=== PATIENT | female | born 1985 | race Caucasian/White ===

== ENCOUNTER 2019-05-06 23:41 | Inpatient (IN) | payer SELFPAY ==
[2019-05-07] MEDS ORDERED: LACTATED RINGERS 500 ML IV ONE (00:31)
[2019-05-07] MEDS ORDERED: MAGNESIUM SULFATE 4GM/100ML 4 GM/100 ML BAG IV ONE (00:34)
[2019-05-07] MEDS ORDERED: MAGNESIUM SULFATE 40GM/1000ML 40 GM/1,000 ML BAG IV SCH (01:00)
[2019-05-07] MEDS ORDERED: SENOKOT S PO PRN (01:18)
[2019-05-07] MEDS ORDERED: ZOFRAN IV PRN (01:18)
[2019-05-07] MEDS ORDERED: COLACE PO PRN (01:18)
[2019-05-07] MEDS ORDERED: TYLENOL PO PRN (01:18)
[2019-05-07] MEDS ORDERED: MYLICON PO PRN (01:18)
[2019-05-07] MEDS ORDERED: AMPICILLIN/NS 2 GM/100 ML 2 GM/100 ML BAG IV ONE (01:18)
--- NOTE | 2019-05-07 01:23 | History and Physical Report ---
History of Present Illness Date of examination: 05/07/19 Date of admission: 05/07/19 00:54 Chief complaint: Contractions with vaginal bleeding History of present illness: Pt is a 34yo EDC 06/30/19; EGA 32 2/7 weeks presents to L&D complaining of vaginal bleeding. She received care at [facility] and course has been unremarkable. She denies contractions or ROM. records are not available. Past History Past Medical History: no pertinent history Past Surgical History: no surgical history Social history: no significant social history, - Obstetrical History Expected Date of Delivery: 06/30/19 Actual Gestation: 32 Week(s) 3 Day(s) Medications and Allergies Allergies Allergy/AdvReac Type Severity Reaction Status Date / Time No Known Allergies Allergy Verified 05/07/19 00:40 Active Meds: Active Medications Acetaminophen (Tylenol) 650 mg PO Q4H PRN PRN Reason: Pain MILD(1-3)/Fever >100.5/DUBON Betamethasone Acet/Betameth SodPhos (Celestone Soluspan) 12 mg IM Q24HR TONG Stop: 05/08/19 10:01 Docusate Sodium (Colace) 100 mg PO Q12H PRN PRN Reason: Constipation Magnesium Sulfate (Magnesium Sulfate 40gm/1000ml) 40 gm in 1,000 mls @ 50 mls/hr IV DIRECT TONG Lactated Ringer's (Lactated Ringers) 1,000 mls @ 125 mls/hr IV DIRECT TONG Ampicillin Sodium (Ampicillin/Ns 1 Gm/50 Ml) 1 gm in 50 mls @ 100 mls/hr IV Q4HR TONG; Protocol Ampicillin Sodium (Ampicillin/Ns 2 Gm/100 Ml) 2 gm in 100 mls @ 100 mls/hr IV ONCE ONE; Protocol Stop: 05/07/19 02:17 Multivitamins/Iron/Calcium ( Vitamin) 1 each PO QDAY TONG Ondansetron HCl (Zofran) 4 mg IV Q6H PRN PRN Reason: Nausea And Vomiting Senna/Docusate Sodium (Senokot S) 2 tab PO Q12H PRN PRN Reason: Laxative Effect Simethicone (Mylicon) 80 mg PO Q6H PRN PRN Reason: Gas pain Review of Systems All systems: negative - Vital Signs Vital signs: Vital Signs Pulse BP 78 132/82 06/08/19 23:56 05/06/19 23:56 Temp Pulse Resp BP Pulse Ox 71 118/69 05/07/19 00:57 05/07/19 00:57 - Physical Exam Breasts: Positive: deferred Cardiovascular: Regular rate Lungs: Positive: Clear to auscultation Abdomen: Positive: normal appearance, soft Genitourinary (Female): Positive: normal external genitalia Vagina: Positive: other (blood on perineum) Uterus: Positive: enlarged Extremities: Positive: normal - Obstetrical FHR: category 1 Uterine Contraction Monitor Mode: External Cervical Dilatation: 0 (per nurse) Cervical Effacement Percentage: 50 (per nurse) Uterine Contraction Pattern: Irregular Uterine Contraction Intensity: Mild Results Result Diagrams: 05/07/19 02:20 All other labs normal. Ultrasound: report reviewed ([place]; Vertex; IRIS 13.4; Cervical length 3.2cm; Posterior placenta; BPP 8/8) Assessment and Plan - Patient Problems (1) 32 weeks gestation of Onset Date: 05/07/19 Current Visit: Yes Status: Acute Plan to address problem: A: IUP @ 32 2/7 weeks Third trimester bleeding contractions P: Admit to L&D Obtain Ob u/s RANDI - r/o abruption, previa Begin IV Magnesium sulfate, IV ampicillin, IM steroids Obtain [facility] consultation Obtain records (2) Vaginal bleeding Onset Date: 05/07/19 Current Visit: Yes Status: Acute
--- NOTE | 2019-05-07 01:43 | Ultrasound Report ---
PROCEDURE: US OB BPP WO NON-STRESS TECHNIQUE: Sonographic evaluation for breathing, movement, tone, and amniotic flui d volume was performed. HISTORY: labor COMPARISONS: None . FINDINGS: FETUS Amniotic fluid volume Normal-score 2. At least one vertical pocket >2 cm or more in vertical axis . breathing: Normal-score 2 . movement: Normal-score 2 . tone: Normal-score 2 . Score: 8 of 8 . IMPRESSION: Normal biophysical profile . This document is electronically signed by Marium Bonilla DO., May 07 2019 01:41:36 AM ET
--- NOTE | 2019-05-07 01:45 | Ultrasound Report ---
PROCEDURE: US OB LIMITED TECHNIQUE: Obstetrical ultrasound for evaluation of the placenta and amniotic fluid HISTORY: labor/ R/O abruption COMPARISONS: None available FINDINGS: There is a single fetus in a vertex presentation. heart rate is 164 bpm. The cervical length is 3.2 cm. 4 quadrant amniotic fluid volume is 13.4 cm. Evaluation of the placenta shows the placenta i s along the posterior uterus. No placental abruption is identified. No further measurements are obtai aaron. IMPRESSION: There is a single fetus in a vertex presentation. The placenta is along the posterior uterus with no evidence of abruption. 4 quadrant amniotic fluid volume is 13.4 cm. This document is electronically signed by Marium Bonilla DO., May 07 2019 01:43:35 AM ET
[2019-05-07] MEDS ORDERED: LACTATED RINGERS 1,000 ML IV SCH (02:00)
[2019-05-07 02:34] LABS: Hematocrit 37.7 % (30.3-42.9); Hemoglobin 12.8 gm/dl (10.1-14.3); Mean Corpuscular HGB Conc 34 % (30-34); Mean Corpuscular Volume 91 fl (79-97); Platelet Count 187 K/mm3 (140-440); Red Blood Count 4.17 M/mm3 (3.65-5.03); Red Cell Distribution Width 14.9 % (13.2-15.2)
[2019-05-07] MEDS: CELESTONE SOLUSPAN IM SCH (02:40)
[2019-05-07 05:17] LABS: Band Neutrophils # (Manual) 0.1 K/mm3; Basophils % (Manual) 0 % (0.0-1.8); Total Cells Counted 100
[2019-05-07 05:18] LABS: Platelet Estimate Consistent w Auto; RBC Morphology Normal
[2019-05-07] MEDS ORDERED: STADOL IV ONE (06:55)
[2019-05-07] MEDS: AMPICILLIN/NS 1 GM/50 ML 1 GM/50 ML BAG IV SCH ×2 (08:25→13:19)
[2019-05-07] MEDS: PRENATAL VITAMIN PO SCH (10:06)
[2019-05-07 15:23] LABS: Amphetamine Screen,Urine PRESUMPTIVE NEGATIVE; Benzodiazepines Screen,Urine PRESUMPTIVE NEGATIVE; Cannabinoid Screen,Urine PRESUMPTIVE NEGATIVE; Cocaine Screen,Urine PRESUMPTIVE NEGATIVE; Methadone Screen,Urine PRESUMPTIVE NEGATIVE; Opiate Screen,Urine PRESUMPTIVE NEGATIVE
[2019-05-07 15:34] LABS: INR 1.01 (0.87-1.13)
[2019-05-07 15:35] LABS: Partial Thromboplastin Time 27.9 Sec. (24.2-36.6)
--- NOTE | 2019-05-07 16:06 | Consultation ---
History of Present Illness Consult date: 05/07/19 Requesting physician: GUERO PORTILLO History of present illness: Utilized [employer] # [id number] 34 y/o ASHLEY 06/30/17 - 32 weeks presented with vaginal bleeding Had prior episode of bleeding 2 weeks ago lasted 2 days Returned with heavier bleeding started around 11:30 - ?? "about to have sex" and reported this was heavier - occ ctx but now stopped Nurse report cervix Closed EFM no ctx categ one - baseline 120-130 ' currently on Mg Getting Steroids BPP 07/06 US no evidence of abruption IRIS 13.4 cm Labs Plt 187 PT/PTT NL Fibrinogen 425 OB hist X 3 all at term , , 13 - no comps no C/C/C No STD No med or surg NKA Abd soft NT gravid ext NT no edema Pad no active bleeding old brownish dc Past History Past Medical History: no pertinent history Past Surgical History: no surgical history - Obstetrical History : 4 Medications and Allergies Allergies Allergy/AdvReac Type Severity Reaction Status Date / Time No Known Allergies Allergy Verified 05/07/19 00:40 Active Meds: Active Medications Acetaminophen (Tylenol) 650 mg PO Q4H PRN PRN Reason: Pain MILD(1-3)/Fever >100.5/DUBON Betamethasone Acet/Betameth SodPhos (Celestone Soluspan) 12 mg IM Q24H TONG Stop: 05/08/19 02:01 Last Admin: 05/07/19 02:40 Dose: 12 mg Documented by: Docusate Sodium (Colace) 100 mg PO Q12H PRN PRN Reason: Constipation Magnesium Sulfate (Magnesium Sulfate 40gm/1000ml) 40 gm in 1,000 mls @ 50 mls/hr IV DIRECT TONG Lactated Ringer's (Lactated Ringers) 1,000 mls @ 125 mls/hr IV DIRECT TONG Last Infusion: 06/09/19 12:11 Dose: 75 mls/hr Documented by: Ampicillin Sodium (Ampicillin/Ns 1 Gm/50 Ml) 1 gm in 50 mls @ 100 mls/hr IV Q4HR [facility]; Protocol Last Admin: 05/07/19 13:19 Dose: 100 mls/hr Documented by: Multivitamins/Iron/Calcium ( Vitamin) 1 each PO QDAY TONG Last Admin: 05/07/19 10:06 Dose: 1 each Documented by: Ondansetron HCl (Zofran) 4 mg IV Q6H PRN PRN Reason: Nausea And Vomiting Senna/Docusate Sodium (Senokot S) 2 tab PO Q12H PRN PRN Reason: Laxative Effect Simethicone (Mylicon) 80 mg PO Q6H PRN PRN Reason: Gas pain - Vital Signs Vital signs: Vital Signs Pulse BP 78 132/82 05/06/19 23:56 05/06/19 23:56 Temp Pulse Resp BP Pulse Ox 98.2 F 77 16 108/66 97 05/07/19 13:19 05/07/19 15:18 05/07/19 15:09 05/07/19 15:18 05/07/19 11:11 Results Result Diagrams: 05/07/19 02:20 Abnormal lab results 05/07/19 05/07/19 05/07/19 Range/Units 02:20 05:47 12:48 Monocytes % (Manual) 12.0 H (0.0-7.3) % Lymphocytes # (Manual) 1.1 L (1.2-5.4) K/mm3 Monocytes # (Manual) 0.9 H (0.0-0.8) K/mm3 D-Dimer (0-234) ng/mlDDU Magnesium 3.80 H 4.10 H (1.7-2.3) mg/dL 05/07/19 Range/Units 14:35 Monocytes % (Manual) (0.0-7.3) % Lymphocytes # (Manual) (1.2-5.4) K/mm3 Monocytes # (Manual) (0.0-0.8) K/mm3 D-Dimer 285.66 H (0-234) ng/mlDDU Magnesium (1.7-2.3) mg/dL All other labs normal. Assessment and Plan Impression 1. [place]illed[place] IUP at 32 weeks 2. Vag bleeding - poss abrubtion - US neg - poss post coital 3. PTC's normal CL cx closed Recommendations 1. DC Mg after 24 hours 2. Steroids for FLM 3. IF EFM remains reassuring and no bleeding x 24 Hours would allow dc home with strict instructions - 4. Restricted activity and Pelvic rest 5. Call or return with recurrent bleeding or PTL 6. May follow up with [facility] in one week to confirm normal BPP and placenta
[2019-05-08] MEDS: CELESTONE SOLUSPAN IM SCH (02:58)
[2019-05-08] MEDS: PRENATAL VITAMIN PO SCH (10:21)
--- NOTE | 2019-05-08 13:35 | Progress Note ---
Assessment and Plan - Patient Problems (1) 32 weeks gestation of Onset Date: 05/07/19 Current Visit: Yes Status: Acute Plan to address problem: A: IUP @ 32 2/7 weeks Third trimester bleeding contractions P: Admit to L&D Obtain Ob u/s RANDI - r/o abruption, previa Begin IV Magnesium sulfate, IV ampicillin, IM steroids MFM Recommendations 1. DC Mg after 24 hours 2. Steroids for FLM 3. IF EFM remains reassuring and no bleeding x 24 Hours would allow dc home with strict instructions - 4. Restricted activity and Pelvic rest 5. Call or return with recurrent bleeding or PTL 6. May follow up with [facility] in one week to confirm normal BPP and placenta Subjective - Subjective Date of service: 05/08/19 Interval history: Pt is a 34yo EDC 06/30/19; EGA 32 2/7 weeks presents to L&D complaining of vaginal bleeding. She received care at [facility] and course has been unremarkable. She denies contractions or ROM. She reports regular movements. Patient reports: movement normal, no new complaints, no loss of fluid, no vaginal bleeding, no contractions Objective - Vital Signs Vital Signs: Vital Signs - 12hr 05/08/19 05/08/19 05/08/19 01:32 01:37 01:38 Temperature Pulse Rate 71 68 69 Respiratory Rate Blood Pressure O2 Sat by Pulse 94 95 94 Oximetry 05/08/19 05/08/19 05/08/19 01:42 01:43 01:47 Temperature Pulse Rate 71 69 66 Respiratory Rate Blood Pressure O2 Sat by Pulse 94 94 93 Oximetry 05/08/19 05/08/19 05/08/19 01:48 01:52 01:54 Temperature Pulse Rate 68 67 68 Respiratory Rate Blood Pressure O2 Sat by Pulse 94 96 94 Oximetry 05/08/19 05/08/19 05/08/19 01:57 01:59 02:02 Temperature Pulse Rate 68 68 69 Respiratory Rate Blood Pressure O2 Sat by Pulse 94 94 96 Oximetry 05/08/19 05/08/19 05/08/19 02:07 02:08 02:12 Temperature Pulse Rate 72 69 68 Respiratory Rate Blood Pressure O2 Sat by Pulse 95 94 95 Oximetry 05/08/19 05/08/19 05/08/19 02:17 02:18 02:22 Temperature Pulse Rate 68 65 71 Respiratory Rate Blood Pressure 96/54 O2 Sat by Pulse 96 96 Oximetry 05/08/19 05/08/19 05/08/19 02:27 02:32 02:37 Temperature Pulse Rate 68 73 68 Respiratory Rate Blood Pressure O2 Sat by Pulse 95 95 95 Oximetry 05/08/19 05/08/19 05/08/19 02:42 02:47 02:52 Temperature Pulse Rate 68 68 70 Respiratory Rate Blood Pressure O2 Sat by Pulse 97 95 97 Oximetry 05/08/19 05/08/19 05/08/19 02:55 02:57 03:02 Temperature Pulse Rate 70 69 72 Respiratory Rate Blood Pressure O2 Sat by Pulse 94 97 96 Oximetry 05/08/19 05/08/19 05/08/19 03:04 03:07 03:12 Temperature Pulse Rate 76 71 68 Respiratory Rate Blood Pressure O2 Sat by Pulse 94 97 96 Oximetry 05/08/19 05/08/19 05/08/19 03:17 03:19 03:22 Temperature Pulse Rate 65 66 67 Respiratory Rate Blood Pressure 91/50 O2 Sat by Pulse 95 96 Oximetry 05/08/19 05/08/19 05/08/19 03:27 03:32 03:37 Temperature Pulse Rate 68 69 66 Respiratory Rate Blood Pressure O2 Sat by Pulse 97 96 95 Oximetry 05/08/19 05/08/19 05/08/19 03:41 03:42 03:47 Temperature Pulse Rate 68 68 66 Respiratory Rate Blood Pressure O2 Sat by Pulse 94 95 95 Oximetry 05/08/19 05/08/19 05/08/19 03:52 03:57 04:02 Temperature Pulse Rate 70 73 73 Respiratory Rate Blood Pressure O2 Sat by Pulse 97 97 96 Oximetry 05/08/19 05/08/19 05/08/19 04:07 04:12 04:17 Temperature Pulse Rate 71 71 72 Respiratory Rate Blood Pressure O2 Sat by Pulse 96 96 97 Oximetry 05/08/19 05/08/19 05/08/19 04:19 04:22 04:25 Temperature Pulse Rate 73 71 68 Respiratory Rate Blood Pressure 90/51 89/54 O2 Sat by Pulse 95 Oximetry 05/08/19 05/08/19 05/08/19 04:27 04:28 04:32 Temperature Pulse Rate 73 71 72 Respiratory Rate Blood Pressure 87/50 O2 Sat by Pulse 97 96 Oximetry 05/08/19 05/08/19 05/08/19 04:37 04:40 04:42 Temperature Pulse Rate 73 82 71 Respiratory Rate Blood Pressure O2 Sat by Pulse 96 93 95 Oximetry 05/08/19 05/08/19 05/08/19 04:47 04:52 04:57 Temperature Pulse Rate 80 76 71 Respiratory Rate Blood Pressure O2 Sat by Pulse 97 96 95 Oximetry 05/08/19 05/08/19 05/08/19 05:02 05:07 05:10 Temperature Pulse Rate 72 72 79 Respiratory Rate Blood Pressure O2 Sat by Pulse 96 96 94 Oximetry 05/08/19 05/08/19 05/08/19 05:12 05:16 05:18 Temperature Pulse Rate 72 72 77 Respiratory Rate Blood Pressure O2 Sat by Pulse 95 94 94 Oximetry 05/08/19 05/08/19 05/08/19 05:20 05:21 05:23 Temperature Pulse Rate 72 70 78 Respiratory Rate Blood Pressure 100/52 O2 Sat by Pulse 94 95 Oximetry 05/08/19 05/08/19 05/08/19 05:28 05:33 05:38 Temperature Pulse Rate 71 69 68 Respiratory Rate Blood Pressure O2 Sat by Pulse 95 95 94 Oximetry 05/08/19 05/08/19 05/08/19 05:43 05:45 05:48 Temperature Pulse Rate 72 69 73 Respiratory Rate Blood Pressure O2 Sat by Pulse 94 94 96 Oximetry 05/08/19 05/08/19 05/08/19 05:53 05:58 06:00 Temperature Pulse Rate 69 76 77 Respiratory Rate Blood Pressure O2 Sat by Pulse 95 95 94 Oximetry 05/08/19 05/08/19 05/08/19 06:03 06:08 06:13 Temperature Pulse Rate 71 68 75 Respiratory Rate Blood Pressure O2 Sat by Pulse 96 95 95 Oximetry 05/08/19 05/08/19 05/08/19 06:18 06:23 06:28 Temperature Pulse Rate 68 72 70 Respiratory Rate Blood Pressure 99/58 O2 Sat by Pulse 92 94 96 Oximetry 05/08/19 05/08/19 05/08/19 06:33 06:37 06:38 Temperature Pulse Rate 68 74 78 Respiratory Rate Blood Pressure O2 Sat by Pulse 96 93 95 Oximetry 05/08/19 05/08/19 05/08/19 06:43 06:48 06:52 Temperature Pulse Rate 67 75 73 Respiratory Rate Blood Pressure O2 Sat by Pulse 95 95 94 Oximetry 05/08/19 05/08/19 05/08/19 06:53 06:57 06:58 Temperature Pulse Rate 68 72 72 Respiratory Rate Blood Pressure O2 Sat by Pulse 96 94 96 Oximetry 05/08/19 05/08/19 05/08/19 07:03 07:08 07:13 Temperature Pulse Rate 70 75 69 Respiratory Rate Blood Pressure O2 Sat by Pulse 95 94 95 Oximetry 05/08/19 05/08/19 05/08/19 07:15 07:18 07:20 Temperature 96.7 F L Pulse Rate 70 75 75 Respiratory 16 Rate Blood Pressure 100/57 O2 Sat by Pulse 94 92 94 Oximetry 05/08/19 05/08/19 05/08/19 07:23 07:28 07:33 Temperature Pulse Rate 73 70 69 Respiratory Rate Blood Pressure O2 Sat by Pulse 98 96 96 Oximetry 05/08/19 05/08/19 05/08/19 07:34 07:38 07:39 Temperature Pulse Rate 72 73 72 Respiratory Rate Blood Pressure O2 Sat by Pulse 94 95 94 Oximetry 05/08/19 05/08/19 05/08/19 07:43 07:45 07:48 Temperature Pulse Rate 71 68 70 Respiratory Rate Blood Pressure O2 Sat by Pulse 93 94 96 Oximetry 05/08/19 05/08/19 05/08/19 07:50 07:53 07:55 Temperature Pulse Rate 72 72 72 Respiratory Rate Blood Pressure O2 Sat by Pulse 94 95 93 Oximetry 05/08/19 05/08/19 05/08/19 07:58 08:03 08:07 Temperature Pulse Rate 70 69 79 Respiratory Rate Blood Pressure O2 Sat by Pulse 96 96 94 Oximetry 05/08/19 05/08/19 05/08/19 08:08 08:13 08:18 Temperature Pulse Rate 81 71 70 Respiratory Rate Blood Pressure O2 Sat by Pulse 97 96 96 Oximetry 05/08/19 05/08/19 05/08/19 08:19 08:22 08:23 Temperature Pulse Rate 65 71 70 Respiratory Rate Blood Pressure 95/53 O2 Sat by Pulse 94 97 Oximetry 05/08/19 05/08/19 05/08/19 08:28 08:30 08:33 Temperature Pulse Rate 68 68 73 Respiratory Rate Blood Pressure O2 Sat by Pulse 95 94 93 Oximetry 05/08/19 05/08/19 05/08/19 08:35 08:38 08:41 Temperature Pulse Rate 74 70 70 Respiratory Rate Blood Pressure O2 Sat by Pulse 93 96 94 Oximetry 05/08/19 05/08/19 05/08/19 08:43 08:48 08:53 Temperature Pulse Rate 67 83 68 Respiratory Rate Blood Pressure O2 Sat by Pulse 94 96 95 Oximetry 05/08/19 05/08/19 05/08/19 08:57 08:58 09:03 Temperature Pulse Rate 73 72 71 Respiratory Rate Blood Pressure O2 Sat by Pulse 94 95 95 Oximetry 05/08/19 05/08/19 05/08/19 09:04 09:08 09:11 Temperature Pulse Rate 70 77 82 Respiratory Rate Blood Pressure O2 Sat by Pulse 94 96 93 Oximetry 05/08/19 05/08/19 05/08/19 09:13 09:17 09:18 Temperature Pulse Rate 78 69 68 Respiratory Rate Blood Pressure O2 Sat by Pulse 95 94 93 Oximetry 05/08/19 05/08/19 05/08/19 09:20 09:23 09:28 Temperature Pulse Rate 68 69 67 Respiratory Rate Blood Pressure 96/54 O2 Sat by Pulse 95 94 Oximetry 05/08/19 05/08/19 05/08/19 09:30 09:33 09:36 Temperature Pulse Rate 69 70 83 Respiratory Rate Blood Pressure O2 Sat by Pulse 93 95 94 Oximetry 05/08/19 05/08/19 05/08/19 09:38 09:41 09:43 Temperature Pulse Rate 65 66 82 Respiratory Rate Blood Pressure O2 Sat by Pulse 94 94 91 Oximetry 05/08/19 05/08/19 05/08/19 09:46 09:48 10:17 Temperature Pulse Rate 85 81 85 Respiratory Rate Blood Pressure O2 Sat by Pulse 94 95 97 Oximetry 05/08/19 05/08/19 05/08/19 10:19 10:21 10:22 Temperature Pulse Rate 76 83 90 Respiratory Rate Blood Pressure 111/55 O2 Sat by Pulse 94 96 Oximetry 05/08/19 05/08/19 05/08/19 10:27 10:33 10:38 Temperature Pulse Rate 87 85 82 Respiratory Rate Blood Pressure O2 Sat by Pulse 96 97 98 Oximetry 05/08/19 05/08/19 05/08/19 10:43 10:48 10:53 Temperature Pulse Rate 79 77 72 Respiratory Rate Blood Pressure O2 Sat by Pulse 97 96 96 Oximetry 05/08/19 05/08/19 05/08/19 10:58 11:03 11:08 Temperature Pulse Rate 74 76 78 Respiratory Rate Blood Pressure O2 Sat by Pulse 95 95 95 Oximetry 05/08/19 05/08/19 05/08/19 11:09 11:13 11:18 Temperature Pulse Rate 85 85 84 Respiratory Rate Blood Pressure 118/69 O2 Sat by Pulse 94 97 95 Oximetry 05/08/19 05/08/19 05/08/19 11:19 11:23 11:28 Temperature Pulse Rate 85 92 H 83 Respiratory Rate Blood Pressure O2 Sat by Pulse 94 97 98 Oximetry 05/08/19 05/08/19 05/08/19 11:33 11:38 11:43 Temperature Pulse Rate 85 85 84 Respiratory Rate Blood Pressure O2 Sat by Pulse 96 97 95 Oximetry 05/08/19 05/08/19 05/08/19 11:47 11:48 11:53 Temperature Pulse Rate 83 86 90 Respiratory Rate Blood Pressure O2 Sat by Pulse 94 95 96 Oximetry 05/08/19 05/08/19 05/08/19 11:54 11:58 12:00 Temperature Pulse Rate 84 80 56 L Respiratory Rate Blood Pressure O2 Sat by Pulse 91 95 84 Oximetry 05/08/19 05/08/19 05/08/19 12:03 12:05 12:08 Temperature Pulse Rate 79 80 84 Respiratory Rate Blood Pressure O2 Sat by Pulse 96 94 96 Oximetry 05/08/19 05/08/19 05/08/19 12:12 12:13 12:18 Temperature Pulse Rate 80 87 76 Respiratory Rate Blood Pressure O2 Sat by Pulse 94 95 96 Oximetry 05/08/19 05/08/19 05/08/19 12:19 12:23 12:28 Temperature Pulse Rate 83 76 84 Respiratory Rate Blood Pressure 113/82 O2 Sat by Pulse 92 95 97 Oximetry 05/08/19 13:18 Temperature Pulse Rate 73 Respiratory Rate Blood Pressure 108/57 O2 Sat by Pulse Oximetry - Exam Breasts: deferred Abdomen: Present: soft Uterus: Absent: tenderness FHR: category 1 - Labs Labs: Abnormal Labs 05/07/19 05/07/19 05/07/19 02:20 05:47 12:48 Monocytes % (Manual) 12.0 H Lymphocytes # (Manual) 1.1 L Monocytes # (Manual) 0.9 H D-Dimer Magnesium 3.80 H 4.10 H 05/07/19 05/07/19 14:35 19:40 Monocytes % (Manual) Lymphocytes # (Manual) Monocytes # (Manual) D-Dimer 285.66 H Magnesium 4.60 H Laboratory Results - last 24 hr 05/07/19 05/07/19 05/07/19 12:48 14:35 14:35 PT 13.9 INR 1.01 APTT 27.9 Fibrinogen 425 D-Dimer 285.66 H Magnesium 4.10 H Urine Opiates Screen Presumptive negative Urine Methadone Screen Presumptive negative Ur Barbiturates Screen Presumptive negative Ur Phencyclidine Scrn Presumptive negative Ur Amphetamines Screen Presumptive negative U Benzodiazepines Scrn Presumptive negative Urine Cocaine Screen Presumptive negative U Marijuana (THC) Screen Presumptive negative Drugs of Abuse Note Disclamer 05/07/19 19:40 PT INR APTT Fibrinogen D-Dimer Magnesium 4.60 H Urine Opiates Screen Urine Methadone Screen Ur Barbiturates Screen Ur Phencyclidine Scrn Ur Amphetamines Screen U Benzodiazepines Scrn Urine Cocaine Screen U Marijuana (THC) Screen Drugs of Abuse Note
--- NOTE | 2019-05-08 13:44 | Progress Note ---
Assessment and Plan Assessment and Plan Impression 1. [place] IUP at 32 weeks 2. Vag bleeding - US neg for abruption - poss post coital; denies vaginal bleeding today 3. PTC's normal CL cx closed; denies contractions today 4. Mg in progress 5. S/P steroid for lung maturity 6. Cervix closed per FRED Hernandez. Recommendations 1. IF EFM remains reassuring and no bleeding x 24 Hours would allow dc home with strict instructions - 2.. Modified activity/ Pelvic rest 3. Call or return with recurrent bleeding or PTL 4. May follow up with [facility] in one week to confirm normal BPP and placenta Thank you for giving us the opportunity to participate in the care of this patient. Please contact our stoneworking belt sander physician Dr. James with any further questions or concerns. Subjective - Subjective Date of service: 05/08/19 Interval history: Patient denies contractions, vaginal bleeding, LOF. Patient reports: movement normal, no new complaints, no loss of fluid, no vaginal bleeding, no contractions Objective - Vital Signs Vital Signs: Vital Signs - 12hr 05/08/19 05/08/19 05/08/19 01:42 01:43 01:47 Temperature Pulse Rate 71 69 66 Respiratory Rate Blood Pressure O2 Sat by Pulse 94 94 93 Oximetry 05/08/19 05/08/19 05/08/19 01:48 01:52 01:54 Temperature Pulse Rate 68 67 68 Respiratory Rate Blood Pressure O2 Sat by Pulse 94 96 94 Oximetry 05/08/19 05/08/19 05/08/19 01:57 01:59 02:02 Temperature Pulse Rate 68 68 69 Respiratory Rate Blood Pressure O2 Sat by Pulse 94 94 96 Oximetry 05/08/19 05/08/19 05/08/19 02:07 02:08 02:12 Temperature Pulse Rate 72 69 68 Respiratory Rate Blood Pressure O2 Sat by Pulse 95 94 95 Oximetry 05/08/19 05/08/19 05/08/19 02:17 02:18 02:22 Temperature Pulse Rate 68 65 71 Respiratory Rate Blood Pressure 96/54 O2 Sat by Pulse 96 96 Oximetry 05/08/19 05/08/19 05/08/19 02:27 02:32 02:37 Temperature Pulse Rate 68 73 68 Respiratory Rate Blood Pressure O2 Sat by Pulse 95 95 95 Oximetry 05/08/19 05/08/19 05/08/19 02:42 02:47 02:52 Temperature Pulse Rate 68 68 70 Respiratory Rate Blood Pressure O2 Sat by Pulse 97 95 97 Oximetry 05/08/19 05/08/19 05/08/19 02:55 02:57 03:02 Temperature Pulse Rate 70 69 72 Respiratory Rate Blood Pressure O2 Sat by Pulse 94 97 96 Oximetry 05/08/19 05/08/19 05/08/19 03:04 03:07 03:12 Temperature Pulse Rate 76 71 68 Respiratory Rate Blood Pressure O2 Sat by Pulse 94 97 96 Oximetry 05/08/19 05/08/19 05/08/19 03:17 03:19 03:22 Temperature Pulse Rate 65 66 67 Respiratory Rate Blood Pressure 91/50 O2 Sat by Pulse 95 96 Oximetry 05/08/19 05/08/19 05/08/19 03:27 03:32 03:37 Temperature Pulse Rate 68 69 66 Respiratory Rate Blood Pressure O2 Sat by Pulse 97 96 95 Oximetry 05/08/19 05/08/19 05/08/19 03:41 03:42 03:47 Temperature Pulse Rate 68 68 66 Respiratory Rate Blood Pressure O2 Sat by Pulse 94 95 95 Oximetry 05/08/19 05/08/19 05/08/19 03:52 03:57 04:02 Temperature Pulse Rate 70 73 73 Respiratory Rate Blood Pressure O2 Sat by Pulse 97 97 96 Oximetry 05/08/19 05/08/19 05/08/19 04:07 04:12 04:17 Temperature Pulse Rate 71 71 72 Respiratory Rate Blood Pressure O2 Sat by Pulse 96 96 97 Oximetry 05/08/19 05/08/19 05/08/19 04:19 04:22 04:25 Temperature Pulse Rate 73 71 68 Respiratory Rate Blood Pressure 90/51 89/54 O2 Sat by Pulse 95 Oximetry 05/08/19 05/08/19 05/08/19 04:27 04:28 04:32 Temperature Pulse Rate 73 71 72 Respiratory Rate Blood Pressure 87/50 O2 Sat by Pulse 97 96 Oximetry 05/08/19 05/08/19 05/08/19 04:37 04:40 04:42 Temperature Pulse Rate 73 82 71 Respiratory Rate Blood Pressure O2 Sat by Pulse 96 93 95 Oximetry 05/08/19 05/08/19 05/08/19 04:47 04:52 04:57 Temperature Pulse Rate 80 76 71 Respiratory Rate Blood Pressure O2 Sat by Pulse 97 96 95 Oximetry 05/08/19 05/08/19 05/08/19 05:02 05:07 05:10 Temperature Pulse Rate 72 72 79 Respiratory Rate Blood Pressure O2 Sat by Pulse 96 96 94 Oximetry 05/08/19 05/08/19 05/08/19 05:12 05:16 05:18 Temperature Pulse Rate 72 72 77 Respiratory Rate Blood Pressure O2 Sat by Pulse 95 94 94 Oximetry 05/08/19 05/08/19 05/08/19 05:20 05:21 05:23 Temperature Pulse Rate 72 70 78 Respiratory Rate Blood Pressure 100/52 O2 Sat by Pulse 94 95 Oximetry 05/08/19 05/08/19 05/08/19 05:28 05:33 05:38 Temperature Pulse Rate 71 69 68 Respiratory Rate Blood Pressure O2 Sat by Pulse 95 95 94 Oximetry 05/08/19 05/08/19 05/08/19 05:43 05:45 05:48 Temperature Pulse Rate 72 69 73 Respiratory Rate Blood Pressure O2 Sat by Pulse 94 94 96 Oximetry 05/08/19 05/08/19 05/08/19 05:53 05:58 06:00 Temperature Pulse Rate 69 76 77 Respiratory Rate Blood Pressure O2 Sat by Pulse 95 95 94 Oximetry 05/08/19 05/08/19 05/08/19 06:03 06:08 06:13 Temperature Pulse Rate 71 68 75 Respiratory Rate Blood Pressure O2 Sat by Pulse 96 95 95 Oximetry 05/08/19 05/08/19 05/08/19 06:18 06:23 06:28 Temperature Pulse Rate 68 72 70 Respiratory Rate Blood Pressure 99/58 O2 Sat by Pulse 92 94 96 Oximetry 05/08/19 05/08/19 05/08/19 06:33 06:37 06:38 Temperature Pulse Rate 68 74 78 Respiratory Rate Blood Pressure O2 Sat by Pulse 96 93 95 Oximetry 05/08/19 05/08/19 05/08/19 06:43 06:48 06:52 Temperature Pulse Rate 67 75 73 Respiratory Rate Blood Pressure O2 Sat by Pulse 95 95 94 Oximetry 05/08/19 05/08/19 05/08/19 06:53 06:57 06:58 Temperature Pulse Rate 68 72 72 Respiratory Rate Blood Pressure O2 Sat by Pulse 96 94 96 Oximetry 05/08/19 05/08/19 05/08/19 07:03 07:08 07:13 Temperature Pulse Rate 70 75 69 Respiratory Rate Blood Pressure O2 Sat by Pulse 95 94 95 Oximetry 05/08/19 05/08/19 05/08/19 07:15 07:18 07:20 Temperature 96.7 F L Pulse Rate 70 75 75 Respiratory 16 Rate Blood Pressure 100/57 O2 Sat by Pulse 94 92 94 Oximetry 05/08/19 05/08/19 05/08/19 07:23 07:28 07:33 Temperature Pulse Rate 73 70 69 Respiratory Rate Blood Pressure O2 Sat by Pulse 98 96 96 Oximetry 05/08/19 05/08/19 05/08/19 07:34 07:38 07:39 Temperature Pulse Rate 72 73 72 Respiratory Rate Blood Pressure O2 Sat by Pulse 94 95 94 Oximetry 05/08/19 05/08/19 05/08/19 07:43 07:45 07:48 Temperature Pulse Rate 71 68 70 Respiratory Rate Blood Pressure O2 Sat by Pulse 93 94 96 Oximetry 05/08/19 05/08/19 05/08/19 07:50 07:53 07:55 Temperature Pulse Rate 72 72 72 Respiratory Rate Blood Pressure O2 Sat by Pulse 94 95 93 Oximetry 05/08/19 05/08/19 05/08/19 07:58 08:03 08:07 Temperature Pulse Rate 70 69 79 Respiratory Rate Blood Pressure O2 Sat by Pulse 96 96 94 Oximetry 05/08/19 05/08/19 05/08/19 08:08 08:13 08:18 Temperature Pulse Rate 81 71 70 Respiratory Rate Blood Pressure O2 Sat by Pulse 97 96 96 Oximetry 05/08/19 05/08/19 05/08/19 08:19 08:22 08:23 Temperature Pulse Rate 65 71 70 Respiratory Rate Blood Pressure 95/53 O2 Sat by Pulse 94 97 Oximetry 05/08/19 05/08/19 05/08/19 08:28 08:30 08:33 Temperature Pulse Rate 68 68 73 Respiratory Rate Blood Pressure O2 Sat by Pulse 95 94 93 Oximetry 05/08/19 05/08/19 05/08/19 08:35 08:38 08:41 Temperature Pulse Rate 74 70 70 Respiratory Rate Blood Pressure O2 Sat by Pulse 93 96 94 Oximetry 05/08/19 05/08/19 05/08/19 08:43 08:48 08:53 Temperature Pulse Rate 67 83 68 Respiratory Rate Blood Pressure O2 Sat by Pulse 94 96 95 Oximetry 05/08/19 05/08/19 05/08/19 08:57 08:58 09:03 Temperature Pulse Rate 73 72 71 Respiratory Rate Blood Pressure O2 Sat by Pulse 94 95 95 Oximetry 05/08/19 05/08/19 05/08/19 09:04 09:08 09:11 Temperature Pulse Rate 70 77 82 Respiratory Rate Blood Pressure O2 Sat by Pulse 94 96 93 Oximetry 05/08/19 05/08/19 05/08/19 09:13 09:17 09:18 Temperature Pulse Rate 78 69 68 Respiratory Rate Blood Pressure O2 Sat by Pulse 95 94 93 Oximetry 05/08/19 05/08/19 05/08/19 09:20 09:23 09:28 Temperature Pulse Rate 68 69 67 Respiratory Rate Blood Pressure 96/54 O2 Sat by Pulse 95 94 Oximetry 05/08/19 05/08/19 05/08/19 09:30 09:33 09:36 Temperature Pulse Rate 69 70 83 Respiratory Rate Blood Pressure O2 Sat by Pulse 93 95 94 Oximetry 05/08/19 05/08/19 05/08/19 09:38 09:41 09:43 Temperature Pulse Rate 65 66 82 Respiratory Rate Blood Pressure O2 Sat by Pulse 94 94 91 Oximetry 05/08/19 05/08/19 05/08/19 09:46 09:48 10:17 Temperature Pulse Rate 85 81 85 Respiratory Rate Blood Pressure O2 Sat by Pulse 94 95 97 Oximetry 05/08/19 05/08/19 05/08/19 10:19 10:21 10:22 Temperature Pulse Rate 76 83 90 Respiratory Rate Blood Pressure 111/55 O2 Sat by Pulse 94 96 Oximetry 05/08/19 05/08/19 05/08/19 10:27 10:33 10:38 Temperature Pulse Rate 87 85 82 Respiratory Rate Blood Pressure O2 Sat by Pulse 96 97 98 Oximetry 05/08/19 05/08/19 05/08/19 10:43 10:48 10:53 Temperature Pulse Rate 79 77 72 Respiratory Rate Blood Pressure O2 Sat by Pulse 97 96 96 Oximetry 05/08/19 05/08/19 05/08/19 10:58 11:03 11:08 Temperature Pulse Rate 74 76 78 Respiratory Rate Blood Pressure O2 Sat by Pulse 95 95 95 Oximetry 05/08/19 05/08/19 05/08/19 11:09 11:13 11:18 Temperature Pulse Rate 85 85 84 Respiratory Rate Blood Pressure 118/69 O2 Sat by Pulse 94 97 95 Oximetry 05/08/19 05/08/19 05/08/19 11:19 11:23 11:28 Temperature Pulse Rate 85 92 H 83 Respiratory Rate Blood Pressure O2 Sat by Pulse 94 97 98 Oximetry 05/08/19 05/08/19 05/08/19 11:33 11:38 11:43 Temperature Pulse Rate 85 85 84 Respiratory Rate Blood Pressure O2 Sat by Pulse 96 97 95 Oximetry 05/08/19 05/08/19 05/08/19 11:47 11:48 11:53 Temperature Pulse Rate 83 86 90 Respiratory Rate Blood Pressure O2 Sat by Pulse 94 95 96 Oximetry 05/08/19 05/08/19 05/08/19 11:54 11:58 12:00 Temperature Pulse Rate 84 80 56 L Respiratory Rate Blood Pressure O2 Sat by Pulse 91 95 84 Oximetry 05/08/19 05/08/19 05/08/19 12:03 12:05 12:08 Temperature Pulse Rate 79 80 84 Respiratory Rate Blood Pressure O2 Sat by Pulse 96 94 96 Oximetry 05/08/19 05/08/19 05/08/19 12:12 12:13 12:18 Temperature Pulse Rate 80 87 76 Respiratory Rate Blood Pressure O2 Sat by Pulse 94 95 96 Oximetry 05/08/19 05/08/19 05/08/19 12:19 12:23 12:28 Temperature Pulse Rate 83 76 84 Respiratory Rate Blood Pressure 113/82 O2 Sat by Pulse 92 95 97 Oximetry 05/08/19 13:18 Temperature Pulse Rate 73 Respiratory Rate Blood Pressure 108/57 O2 Sat by Pulse Oximetry - Exam Breasts: deferred Cardiovascular: Regular rate Lungs: Normal air movement Abdomen: Present: normal appearance (gravid) - Labs Labs: Abnormal Labs 05/07/19 05/07/19 05/07/19 02:20 05:47 12:48 Monocytes % (Manual) 12.0 H Lymphocytes # (Manual) 1.1 L Monocytes # (Manual) 0.9 H D-Dimer Magnesium 3.80 H 4.10 H 05/07/19 05/07/19 14:35 19:40 Monocytes % (Manual) Lymphocytes # (Manual) Monocytes # (Manual) D-Dimer 285.66 H Magnesium 4.60 H Laboratory Results - last 24 hr 05/07/19 05/07/19 05/07/19 14:35 14:35 19:40 PT 13.9 INR 1.01 APTT 27.9 Fibrinogen 425 D-Dimer 285.66 H Magnesium 4.60 H Urine Opiates Screen Presumptive negative Urine Methadone Screen Presumptive negative Ur Barbiturates Screen Presumptive negative Ur Phencyclidine Scrn Presumptive negative Ur Amphetamines Screen Presumptive negative U Benzodiazepines Scrn Presumptive negative Urine Cocaine Screen Presumptive negative U Marijuana (THC) Screen Presumptive negative Drugs of Abuse Note Disclamer
[2019-05-09 01:48] VITALS: BP 97/52
--- NOTE | 2019-05-09 08:10 | Progress Note ---
Assessment and Plan - Patient Problems (1) 32 weeks gestation of Onset Date: 05/07/19 Current Visit: Yes Status: Acute Plan to address problem: A: IUP @ 32 2/7 weeks Third trimester bleeding contractions P: Admit to L&D Obtain Ob u/s RANDI - r/o abruption, previa Begin IV Magnesium sulfate, IV ampicillin, IM steroids MFM Recommendations 1. DC Mg after 24 hours 2. Steroids for FLM 3. IF EFM remains reassuring and no bleeding x 24 Hours would allow dc home with strict instructions - 4. Restricted activity and Pelvic rest 5. Call or return with recurrent bleeding or PTL 6. May follow up with [facility] in one week to confirm normal BPP and placenta Today 05/09/2019: Patient has met [facility]'s criteria for discharge and may go home. Patient told to continue strict pelvic rest. Subjective - Subjective Date of service: 05/09/19 Interval history: Pt is a 34yo EDC 06/30/19; EGA 32 2/7 weeks presents to L&D complaining of vaginal bleeding. She received care at [facility] and course has been unremarkable. She denies contractions or ROM. She reports regular movements. Patient reports: movement normal, no new complaints, no loss of fluid, no vaginal bleeding, no contractions Objective - Vital Signs Vital Signs: Vital Signs - 12hr 05/08/19 05/08/19 05/09/19 22:34 22:38 01:47 Temperature 98.7 F Pulse Rate 71 69 Respiratory 18 Rate Blood Pressure 110/71 97/52 05/09/19 01:48 Temperature 97.8 F Pulse Rate Respiratory 16 Rate Blood Pressure - Exam Breasts: deferred Abdomen: Present: normal appearance, soft FHR: category 1 (No bleeding reported for past 24 hrs. Patient agreed to refrain from sexual intercourse and continue rest at home. She lives only 2 minutes away from the hospital and will return if any bleeding or contractions or decreased activity.) - Labs Labs: Abnormal Labs 05/07/19 05/07/19 05/07/19 02:20 05:47 12:48 Monocytes % (Manual) 12.0 H Lymphocytes # (Manual) 1.1 L Monocytes # (Manual) 0.9 H D-Dimer Magnesium 3.80 H 4.10 H 05/07/19 05/07/19 14:35 19:40 Monocytes % (Manual) Lymphocytes # (Manual) Monocytes # (Manual) D-Dimer 285.66 H Magnesium 4.60 H
== END 2019-05-09 09:35 | disposition home or self-care (01) | DRG 833 ==
LOC: TRG 23:41 → LD 05-07 00:54
PROVIDERS: ADMIT Obstetrics & Gynecology; ATTEND Obstetrics & Gynecology
DX: O46.93 Antepartum hemorrhage, unspecified, third trimester (principal); Z3A.32 32 weeks gestation of pregnancy
CPT/HCPCS: 36415; 76815; 76819; 80307; 83735; 85007; 85025; 85379; 85384; 85610; 85730; 86850; 86900; 86901; G0378; J0290; J0702; J3475; J7120

== ENCOUNTER 2019-05-17 04:15 | Outpatient (CLI) | payer SELFPAY ==
--- NOTE | 2019-05-17 06:52 | Ultrasound Report ---
PROCEDURE: US OB LIMITED TECHNIQUE: A limited transabdominal scan was obtained for evaluation of the placenta. HISTORY: vaginal bleeding COMPARISONS: 05/07/2019 FINDINGS: The placenta is posterior in position and is grade 1. There is no evidence of abruption. The fetus is in breech presentation. The IRIS is 13.1 cm which is normal. The heart rate is 145 BPM. The cer vical length is 3.7 cm. IMPRESSION: Posterior placenta. No evidence of abruption. Breech presentation. The heart rate is 145 BPM.. This document is electronically signed by Victor M Mahan MD., May 17 2019 06:49:45 AM ET
[2019-05-17 08:18] LABS: Hematocrit 37.8 % (30.3-42.9); Hemoglobin 12.9 gm/dl (10.1-14.3); Mean Corpuscular HGB Conc 34 % (30-34); Mean Corpuscular Volume 91 fl (79-97); Platelet Count 185 K/mm3 (140-440); Red Blood Count 4.15 M/mm3 (3.65-5.03); Red Cell Distribution Width 14.4 % (13.2-15.2)
[2019-05-17] MEDS ORDERED: CELESTONE SOLUSPAN IM ONE (08:37)
[2019-05-17] MEDS ORDERED: CELESTONE SOLUSPAN IM SCH (09:00)
--- NOTE | 2019-05-17 09:26 | History and Physical Report ---
History of Present Illness Date of examination: 05/17/19 Date of admission: 05/17/2019 Chief complaint: Painless vaginal bleeding at 33wks gestation. History of present illness: Poor historian: Had a painless vaginal bleeding early this morning. Past History - Obstetrical History Expected Date of Delivery: 06/30/19 Actual Gestation: 33 Week(s) 5 Day(s) : 4 Medications and Allergies Allergies Allergy/AdvReac Type Severity Reaction Status Date / Time No Known Allergies Allergy Verified 05/07/19 00:40 Home Medications Medication Instructions Recorded Confirmed Last Taken Type No Known Home Medications [No 05/09/19 05/09/19 Unknown History Reported Home Medications] Active Meds: Active Medications Betamethasone Acet/Betameth SodPhos (Celestone Soluspan) 12 mg IM Q24H TONG Stop: 05/18/19 09:01 Last Admin: 05/17/19 08:50 Dose: 12 mg Documented by: Lactated Ringer's (Lactated Ringers) 1,000 mls @ 125 mls/hr IV DIRECT TONG Review of Systems All systems: negative - Vital Signs Vital signs: Vital Signs Pulse BP 86 115/70 05/17/19 05:24 05/17/19 05:24 Temp Pulse Resp BP Pulse Ox 97.5 F L 86 16 115/70 05/17/19 05:31 05/17/19 05:24 05/17/19 05:31 05/17/19 05:24 - Physical Exam Breasts: Positive: deferred Cardiovascular: Regular rate Lungs: Positive: Clear to auscultation Abdomen: Positive: normal appearance, distention - Obstetrical FHR: category 1 station: breech [US finding] Uterine Contraction Pattern: Absent Results Result Diagrams: 05/17/19 07:25 All other labs normal. Ultrasound: report reviewed Assessment and Plan Ante painless vaginal bleeding at 33+5wk; bleeding inactive. On bed rest/observation Dr. Sam accepted to consult [facility] this morning.
--- NOTE | 2019-05-17 10:25 | Progress Note ---
Assessment and Plan - Patient Problems (1) 33 weeks gestation of Current Visit: Yes Status: Acute (2) Vaginal bleeding Onset Date: 05/07/19 Current Visit: No Status: Acute Plan to address problem: Type and screen is O positive. H/H and Platelet are stable. Continue inpatient observation. Steroid for FLM completed a week ago. No contraction at this time. [place] monitoring. If bleeding recurs heavy again, will repeat sonogram to reassess for abruption. (3) Advanced maternal age (AMA) in Current Visit: Yes Status: Acute Subjective - Subjective Date of service: 05/17/19 Principal diagnosis: SIUP at 33 weeks and 5 days with vaginal bleeding. Interval history: Patient is a 34 year old , EDC 06/30/19 at 33 weeks and 5 days gestation who was admitted early this AM for vaginal bleeding. She stated that she had sudden-onset of bleeding which was bright red with clots about the size of a quarter at about 3:30 AM. She denies having intercourse prior to the episode, she denies any contraction or fluid leakage. tracing is CAT1. In triage, the bleeding has slowed down ans she is only spotting. Exam: cervix closed, mild blood with clots at the cervix. Sonogram showed a posterior placenta, no abruption or previa, IRIS of 13, breech presentation. She is a patient of [facility]. She was admitted on 05/07 for vaginal bleeding. At that time, sonogram did not show any placenta previa or abruption. She was treated with magnesium sulfate for 24 hours and celestone x 2 doses for FLM. The bleeding stopped and she was discharged home on 05/09. Objective - Vital Signs Vital Signs: Vital Signs - 12hr 05/17/19 05/17/19 05:24 05:31 Temperature 97.5 F L Pulse Rate 86 Respiratory 16 Rate Blood Pressure 115/70 - Exam Cardiovascular: Normal S1, Normal S2 Lungs: Clear to auscultation Vulva: both: normal FHR: category 1 Uterine Contraction Monitor Mode: External Cervical Dilatation: 0 Cervical Effacement Percentage: 0 station: -3 Uterine Contraction Pattern: Absent Deep Tendon Reflex Grade: Normal +2 - Labs Labs: Laboratory Results - last 24 hr 05/17/19 05/17/19 07:25 07:25 WBC 7.1 RBC 4.15 Hgb 12.9 Hct 37.8 MCV 91 MCH 31 MCHC 34 RDW 14.4 Plt Count 185 Blood Type O POSITIVE Antibody Screen Negative - Results US- obstetric: report reviewed
[2019-05-17] MEDS: LACTATED RINGERS 1,000 ML IV SCH ×2 (11:02→14:53)
[2019-05-17] MEDS ORDERED: LACTATED RINGERS 1,000 ML IV ONE (12:32)
[2019-05-17 12:37] LABS: Bacteria,Urine 1+ /HPF (Negative); Bilirubin,Urine NEG (Negative); Blood,Urine LG (Negative); Color,Urine Red (Yellow); Protein,Urine <15 mg/dL mg/dL (Negative); Urobilinogen,Urine < 2.0 mg/dL (<2.0)
[2019-05-18 06:23] LABS: Basophils % (Auto) 0.2 % (0.0-1.8); Eosinophils % (Auto) 0.1 % (0.0-4.3); Hematocrit 37.1 % (30.3-42.9); Hemoglobin 12.7 gm/dl (10.1-14.3); Lymphocytes # (Auto) 1.2 K/mm3 (1.2-5.4); Lymphocytes % (Auto) 12.2 % (13.4-35.0); Mean Corpuscular HGB Conc 34 % (30-34); Mean Corpuscular Volume 91 fl (79-97); Monocytes # (Auto) 0.8 K/mm3 (0.0-0.8); Monocytes % (Auto) 8.3 % (0.0-7.3); Platelet Count 203 K/mm3 (140-440); Red Blood Count 4.06 M/mm3 (3.65-5.03); Red Cell Distribution Width 14.6 % (13.2-15.2)
--- NOTE | 2019-05-18 09:09 | Progress Note ---
Assessment and Plan - Patient Problems (1) 33+6 weeks gestation of Current Visit: Yes (2) Vaginal bleeding Plan to address problem: Type and screen is O positive. H/H and Platelet are stable. Patient is stable enough to return home: She lives within 10 minutes of the hospital and can return as needed, However, will keep patient until M opines on her clinical situation.M consulted this am. Steroid for FLM completed a week ago. No contraction at this time. [place] monitoring. If bleeding recurs heavy again, will repeat sonogram to reassess for abruption. Subjective - Subjective Date of service: 05/18/19 Principal diagnosis: SIUP at 33 weeks and 6 days with vaginal bleeding. Interval history: IUP at 33 weeks and 6 days with vaginal bleeding. Interval history: Patient is a 34 year old , EDC 06/30/19 at 33 weeks and 5 days gestation who was admitted early this AM for vaginal bleeding. She stated that she had sudden-onset of bleeding which was bright red with clots about the size of a quarter at about 3:30 AM. She denies having intercourse prior to the episode, she denies any contraction or fluid leakage. tracing is CAT1. In triage, the bleeding has slowed down ans she is only spotting. Exam: cervix closed, mild blood with clots at the cervix. Sonogram showed a posterior placenta, no abruption or previa, IRIS of 13, breech presentation. She is a patient of [facility]. She was admitted on 05/07 for vaginal bleeding. At that time, sonogram did not show any placenta previa or abruption. She was treated with magnesium sulfate for 24 hours and celestone x 2 doses for FLM. The bleeding stopped and she was discharged home on 05/09. Today patient reported no new active vaginal bleeds and was otherwise resting comfortably. Patient reports: movement normal, no new complaints, no vaginal bleeding, no contractions Objective - Exam Breasts: deferred Cardiovascular: Regular rate Abdomen: Present: normal appearance, distention Uterus: Present: normal, fundal height above umbilicus FHR: category 1 - Labs Labs: Abnormal Labs 05/17/19 05/18/19 Unknown 06:09 Lymph % (Auto) 12.2 L Sunflower % (Auto) 8.3 H Seg Neutrophils % 79.2 H Seg Neutrophils # 8.0 H U Epithel Cells (Auto) 39.0 H Laboratory Results - last 24 hr 05/17/19 05/18/19 Unknown 06:09 WBC 10.1 RBC 4.06 Hgb 12.7 Hct 37.1 MCV 91 MCH 31 MCHC 34 RDW 14.6 Plt Count 203 Lymph % (Auto) 12.2 L Sunflower % (Auto) 8.3 H Eos % (Auto) 0.1 Baso % (Auto) 0.2 Lymph # 1.2 Sunflower # 0.8 Eos # 0.0 Baso # 0.0 Seg Neutrophils % 79.2 H Seg Neutrophils # 8.0 H Urine Color Red Urine Turbidity Cloudy Urine pH 7.0 Ur Specific [place] 1.008 Urine Protein <15 mg/dl Urine Glucose (UA) Neg Urine Ketones Neg Urine Blood Lg Urine Nitrite Neg Urine Bilirubin Neg Urine Urobilinogen < 2.0 Ur Leukocyte Esterase Mod Urine WBC (Auto) 5.0 Urine RBC (Auto) 1.0 U Epithel Cells (Auto) 39.0 H Urine Bacteria (Auto) 1+
[2019-05-18 09:15] VITALS: BP 100/55
[2019-05-18] MEDS ORDERED: TYLENOL PO PRN (09:58)
[2019-05-18] MEDS ORDERED: COLACE PO PRN (09:58)
[2019-05-18] MEDS ORDERED: PRENATAL VITAMIN PO SCH (10:00)
--- NOTE | 2019-05-18 11:40 | Consultation ---
History of Present Illness Consult date: 05/18/19 Requesting physician: MOY PATE Reason for consult: other (vaginal bleeding) History of present illness: To: Dr. Pate From: Dylan James M.D. RE: LAMBERTO LARA : 81 IUP at 33 weeks 6 days Transient vaginal bleeding. No previous scans with [facility] Consider discharge when stable. Date: May 18, 2019 HISTORY OF PRESENT ILLNESS: 34 year old para 3003 at 33 weeks 6 days gestation based on an ASHLEY of 06/30/19 who presented with vaginal bleeding. Patient has had no previous ultrasounds at [facility] This patient describes sudden-onset of bleeding which was bright red with clots about the size of a quarter at about 3:30 AM this morning. She DENIED having intercourse prior to the episode, she denies any contraction or fluid leakage. Her FHR tracing at [facility] was Category 1. While in triage her bleeding has decreased. Her previous exam showed a closed cervix with a small amount of blood near the cervix. This patient was previously hospitalized from 05/07/19 until 05/09/19 for a similar episode. At that time she was treated with magnesium sulfate for 24 hours and celestone x 2 doses for FLM. OB History See H&P RECENT ULTRASONOGRAPHY 05/17/19: See results in patients chart A limited transabdominal scan was obtained for evaluation of the placenta. HISTORY: vaginal bleeding FINDINGS: The placenta is posterior in position and is grade 1. There is no evidence of abruption. The fetus is in breech presentation. The IRIS is 13 .1 cm which is normal. The heart rate is 145 BPM. The cervical length is 3.7 cm. IMPRESSION: Posterior placenta. No evidence of abruption. Breech presentation. The heart rate is 145 BPM .. ADMISSION LAB TESTS: * See Details in patients chart Past History - Obstetrical History : 4 Medications and Allergies Allergies Allergy/AdvReac Type Severity Reaction Status Date / Time No Known Allergies Allergy Verified 05/07/19 00:40 Home Medications Medication Instructions Recorded Confirmed Last Taken Type No Known Home Medications [No 05/09/19 05/09/19 Unknown History Reported Home Medications] Active Meds: Active Medications Acetaminophen (Tylenol) 650 mg PO Q4H PRN PRN Reason: Pain MILD(1-3)/Fever >100.5/DUBON Docusate Sodium (Colace) 100 mg PO Q12H PRN PRN Reason: Constipation Lactated Ringer's (Lactated Ringers) 1,000 mls @ 125 mls/hr IV DIRECT TONG Last Admin: 05/17/19 14:53 Dose: 125 mls/hr Documented by: Multivitamins/Iron/Calcium ( Vitamin) 1 each PO QDAY TONG - Vital Signs Vital signs: Vital Signs Pulse BP 86 115/70 05/17/19 05:24 05/17/19 05:24 Temp Pulse Resp BP Pulse Ox 98.6 F 69 18 100/55 05/17/19 16:20 05/18/19 09:14 05/17/19 16:20 05/18/19 09:14 Results Result Diagrams: 05/18/19 06:09 Abnormal lab results 05/17/19 05/18/19 Range/Units Unknown 06:09 Lymph % (Auto) 12.2 L (13.4-35.0) % [place] % (Auto) 8.3 H (0.0-7.3) % Seg Neutrophils % 79.2 H (40.0-70.0) % Seg Neutrophils # 8.0 H (1.8-7.7) K/mm3 U Epithel Cells (Auto) 39.0 H (0-13.0) /HPF All other labs normal. Assessment and Plan ASSESSMENT IUP at 33-34 weeks gestation. Transient vaginal bleeding. No previous scans with [facility] Consider discharge when stable. SUGGESTED MANAGEMENT PLAN 1. Continued admission 2. Patient is status post steroids. 3. Following discharge; please consider a follow-up appointment with [facility]. 4. Deliver for indications. 5. Consider discharge home if stable. 6. Follow-up with [facility] next week. 7. [facility] to follow Thank you for allowing us to participate in the care of this patient. We look forward to the opportunity to assist in her continued management. If you have any questions, we may be reached at [phone]. Dylan James M.D.
== END 2019-05-18 17:15 | disposition home or self-care (01) ==
LOC: TRG 04:15 → LD 13:08 → TRG 05-18 17:15
PROVIDERS: ATTEND Obstetrics & Gynecology
DX: O46.93 Antepartum hemorrhage, unspecified, third trimester (principal); O32.1XX0 Maternal care for breech presentation, not applicable or unspecified; O09.523 Supervision of elderly multigravida, third trimester; O26.893 Other specified pregnancy related conditions, third trimester; Z67.41 Type O blood, Rh negative; Z3A.33 33 weeks gestation of pregnancy
CPT/HCPCS: 36415; 59025; 76815; 81001; 85025; 85027; 86850; 86900; 86901; 96360; 96361; 96372; J0702; J7120

== ENCOUNTER 2019-05-25 19:10 | Outpatient (CLI) | payer SELFPAY ==
[2019-05-25] MEDS ORDERED: LACTATED RINGERS 500 ML IV ONE (19:30)
[2019-05-25 20:13] LABS: Bacteria,Urine 2+ /HPF (Negative); Bilirubin,Urine NEG (Negative); Blood,Urine MOD (Negative); Color,Urine Yellow (Yellow); Mucus,Urine FEW /HPF; Protein,Urine <15 mg/dL mg/dL (Negative); Urobilinogen,Urine < 2.0 mg/dL (<2.0)
[2019-05-25 21:53] VITALS: BP 107/65
--- NOTE | 2019-05-25 21:53 | Ultrasound Report ---
PROCEDURE: US OB LIMITED TECHNIQUE: Ultrasound obstetrical limited transabdominal HISTORY: vaginal bleeding blood clots COMPARISONS: FINDINGS: Ultrasound for evaluation of the placenta. The placenta is grade 1 and fundal It does not appear low- lying. No evidence for placental abruption normal vascularity noted There is single live intrauterine gestation in cephalic presentation. cardiac activity present heart rate 139 bpm IMPRESSION: No sonographic evidence for placenta previa or abruption. This document is electronically signed by Manuel Padilla MD., May 25 2019 09:52:01 PM ET
== END 2019-05-26 00:05 | disposition home or self-care (01) ==
LOC: TRG 19:10
PROVIDERS: ATTEND Obstetrics & Gynecology
DX: O47.03 False labor before 37 completed weeks of gestation, third trimester (principal); Z3A.34 34 weeks gestation of pregnancy
CPT/HCPCS: 59025; 76815; 81001

== ENCOUNTER 2019-06-13 11:55 | Outpatient (CLI) | payer OTHER ==
[2019-06-13 16:29] VITALS: BP 116/55
--- NOTE | 2019-06-13 17:49 | Ultrasound Report ---
ULTRASOUND BIOPHYSICAL PROFILE INDICATION / CLINICAL INFORMATION: WELLBEING. COMPARISON: None available. FINDINGS: BREATHING MOVEMENT = 2 GROSS BODY MOVEMENT = 2 TONE = 2 QUALITATIVE AMNIOTIC FLUID VOLUME = 2 TOTAL BIOPHYSICAL SCORE = 8/8 AMNIOTIC FLUID INDEX (cm) = 11.1 PRESENTATION: Cephalic. PLACENTA: posterior and grade 2. HEART RATE (beats per minute): 138 CERVICAL LENGTH: 3.7 cm IMPRESSION: 1. biophysical profile = 07/06 Signer Name: Damien Pretty MD Signed: 06/13/2019 5:44 PM Workstation Name: [id number]
== END 2019-06-13 18:00 | disposition home or self-care (01) ==
LOC: TRG 11:55
PROVIDERS: ATTEND Obstetrics & Gynecology
DX: O47.03 False labor before 37 completed weeks of gestation, third trimester (principal); Z3A.37 37 weeks gestation of pregnancy
CPT/HCPCS: 76815; 76819

== ENCOUNTER 2019-07-05 07:54 | Inpatient (IN) | payer OTHER ==
[2019-07-05 14:23] LABS: Basophils % (Auto) 0.3 % (0.0-1.8); Eosinophils % (Auto) 0.4 % (0.0-4.3); Hematocrit 39.9 % (30.3-42.9); Hemoglobin 13.7 gm/dl (10.1-14.3); Lymphocytes # (Auto) 1.2 K/mm3 (1.2-5.4); Lymphocytes % (Auto) 15.8 % (13.4-35.0); Mean Corpuscular HGB Conc 34 % (30-34); Mean Corpuscular Volume 92 fl (79-97); Monocytes # (Auto) 0.6 K/mm3 (0.0-0.8); Monocytes % (Auto) 7.2 % (0.0-7.3); Platelet Count 153 K/mm3 (140-440); Red Blood Count 4.33 M/mm3 (3.65-5.03); Red Cell Distribution Width 14.5 % (13.2-15.2)
[2019-07-05] MEDS ORDERED: XYLOCAINE 2% INFILTRATI ONE ×2 (14:32→17:54)
[2019-07-05] MEDS ORDERED: ZOFRAN IV PRN (14:32)
[2019-07-05] MEDS ORDERED: BRETHINE SUB-Q PRN (14:32)
[2019-07-05] MEDS ORDERED: STADOL IV PRN (14:32)
[2019-07-05] MEDS ORDERED: BRETHINE IVP PRN (14:32)
[2019-07-05] MEDS ORDERED: MINERAL OIL PO PRN (14:32)
[2019-07-05] MEDS ORDERED: NARCAN 0.4 MG/1 ML IV PRN (14:32)
--- NOTE | 2019-07-05 14:40 | History and Physical Report ---
History of Present Illness Date of examination: 07/05/19 Date of admission: 07/05/2019 Chief complaint: My water broke around 0700 this morning. The fluid was clear. History of present illness: Early entry to care at [facility], 2nd trimester complicate by dysuria, treated with Macrobid. At approximately 30 weeks, hospitalized for vaginal bleeding, received MagSO4, and Betamethsome series. Past History Past Medical History: no pertinent history Past Surgical History: no surgical history Family/Genetic History: hypertension (mother) Social history: no significant social history, - Obstetrical History Expected Date of Delivery: 06/30/19 Actual Gestation: 40 Week(s) 5 Day(s) : 4 Para: 3 Hx # Term Pregnancies: 3 Number of Living Children: 3 #1 Gender: Female year: 2,009 Birthweight: 3.175 kg Method of Delivery: Vaginal Gestational age at delivery: 40 Complications: none #2 Infant Gender: Female year: 2,011 Birthweight: 3.487 kg Method of Delivery: Vaginal Gestational age at delivery: 40 Complications: none #3 Infant Gender: Male year: 2,013 Birthweight: 3.629 kg Method of Delivery: Vaginal Gestational age at delivery: 40 Complications: none Medications and Allergies Allergies Allergy/AdvReac Type Severity Reaction Status Date / Time No Known Allergies Allergy Verified 05/07/19 00:40 Home Medications Medication Instructions Recorded Confirmed Last Taken Type No Known Home Medications [No 05/09/19 05/25/19 Unknown History Reported Home Medications] Active Meds: Active Medications Butorphanol Tartrate (Stadol) 2 mg IV Q2H PRN PRN Reason: Pain , Severe (7-10) Ephedrine Sulfate (Ephedrine Sulfate) 10 mg IV Q2M PRN PRN Reason: Hypotension Oxytocin/Sodium Chloride (Pitocin/Ns 20 Unit/1000ml Drip) 20 units in 1,000 mls @ 125 mls/hr IV DIRECT TONG Oxytocin/Sodium Chloride (Pitocin/Ns 30 Unit/500ml) 30 units in 500 mls @ 4 mls/hr IV TITR TONG; Protocol Lactated Ringer's (Lactated Ringers) 1,000 mls @ 125 mls/hr IV DIRECT TONG Lidocaine (Xylocaine 2%) 20 ml INFILTRATI ONCE ONE Stop: 07/05/19 14:33 Mineral Oil (Mineral Oil) 30 ml PO QHS PRN PRN Reason: Constipation Naloxone HCl (Narcan 0.4 Mg/1 Ml) 0.1 mg IV Q2MIN PRN PRN Reason: Res Rate </= 8 or 02 SAT < 92% Ondansetron HCl (Zofran) 4 mg IV Q8H PRN PRN Reason: Nausea And Vomiting Terbutaline Sulfate (Brethine) 0.25 mg SUB-Q ONCE PRN PRN Reason: Hyperstimulation/Hypertonicity Terbutaline Sulfate (Brethine) 0.25 mg IVP ONCE PRN PRN Reason: Hyperstimulation/Hypertonicity Review of Systems All systems: negative - Vital Signs Vital signs: Vital Signs Temp 99.5 F 07/05/19 09:47 Temp Pulse Resp BP Pulse Ox 99.5 F 07/05/19 09:47 - Physical Exam Breasts: Positive: normal Cardiovascular: Regular rate Lungs: Positive: Clear to auscultation, Normal air movement Abdomen: Positive: normal appearance, soft, normal bowel sounds Genitourinary (Female): Positive: normal external genitalia, normal perenium Uterus: Positive: enlarged - Obstetrical FHR: category 1 Uterine Contraction Monitor Mode: External Cervical Dilatation: 3 (leaking a small amount of clear fluid) Cervical Effacement Percentage: 70 station: -3 Uterine Contraction Pattern: Irregular Uterine Tone Measurement Phase: Resting Uterine Contraction Intensity: Moderate Results Result Diagrams: 07/05/19 10:30 Abnormal lab results 07/05/19 Range/Units 10:30 Seg Neutrophils % 76.3 H (40.0-70.0) % All other labs normal. Assessment and Plan A: IUP@ 40 5/7 Weeks SROM Category I Tracing GBS Negative P: Admit to L&D per Routine Orders Pitocin Augmentation
[2019-07-05] MEDS ORDERED: LACTATED RINGERS 1,000 ML IV SCH (15:00)
[2019-07-05] MEDS ORDERED: PITOCin/NS 20 UNIT/1000ML DRIP 20 UNITS/1,000 ML BAG IV SCH (15:00)
[2019-07-05] MEDS ORDERED: PITOCin/NS 30 UNIT/500ML 30 UNITS/500 ML BAG IV SCH (15:00)
[2019-07-05 15:58] LABS: Hematocrit 39.7 % (30.3-42.9); Hemoglobin 13.8 gm/dl (10.1-14.3); Mean Corpuscular HGB Conc 35 % (30-34); Mean Corpuscular Volume 91 fl (79-97); Platelet Count 159 K/mm3 (140-440); Red Blood Count 4.35 M/mm3 (3.65-5.03); Red Cell Distribution Width 14.4 % (13.2-15.2)
[2019-07-05] MEDS ORDERED: DULCOLAX PR PRN (18:27)
[2019-07-05] MEDS ORDERED: BENADRYL PO PRN (18:27)
--- NOTE | 2019-07-05 18:38 | Procedure Note ---
OB Delivery Note - Delivery Date of Delivery: 07/05/19 (1745) Surgeon: BREANNA AIKEN Estimated blood loss: 300cc - Vaginal Delivery presentation: vertex Delivery position: OA Intrapartum events: none Delivery induction: none Delivery augmentation: pitocin Delivery monitor: external FHT, external uterine Route of delivery: Delivery placenta: spontaneous Delivery cord: nuchal cord, 3 umbilical vessels Episiotomy: none Delivery laceration: 1st degree Delivery repair: vicryl Anesthesia: local Delivery comments: of a live 7'9 male infant over 1st degree periurethral and 1st degree perineal lacerations without pain control with Apgars of 7 and 9 at 1745 on 07/05/2019. Tight nuchal cord x 1 manually reduced on the perineum prior to delivery of the anterior shoulder. Cord double clamped and cut by ARISTEO Aiken, and placed on the warmer due to floppy presentation. Cord blood gasses collecte d x 2; Cord blood also collected. Spontaneous delivery of placenta complete and intact with Rivas side presenting at 1750. Fundus is firm and midline located 5 below the U. Lochia is scant. Vaginal lacerations repaired with 2-[address]-1 under local 2% Lidocaine. - Infant A at 1 minute: 7 at 5 minutes: 9 Gender: Male (7'9)
[2019-07-05] MEDS ORDERED: SODIUM CHLORIDE FLUSH SYRINGE 10 ML IV NR (19:00)
[2019-07-05] MEDS: IBUPROFEN PO SCH (19:32)
[2019-07-05] MEDS ORDERED: DERMOPLAST TP PRN (21:06)
[2019-07-05] MEDS: TUCKS PAD TP PRN (21:25)
[2019-07-05] MEDS: NORCO 5/325 PO PRN (21:25)
[2019-07-06] MEDS: NORCO 5/325 PO PRN ×2 (03:40→21:59)
[2019-07-06] MEDS: IBUPROFEN PO SCH ×3 (03:40→18:02)
[2019-07-06 07:52] LABS: Hematocrit 31.7 % (30.3-42.9); Hemoglobin 10.8 gm/dl (10.1-14.3)
[2019-07-06] MEDS: PRENATAL VITAMIN PO SCH (11:10)
--- NOTE | 2019-07-06 12:29 | Progress Note ---
Assessment and Plan A: PPD#1 s/p Stable P: Continue PP care Discharge home today pending peds Subjective - Subjective Date of service: 07/06/19 Principal diagnosis: PPD#1 s/p Interval history: See H&P and delivery note Patient reports: appetite normal, voiding normally, pain well controlled, flatus, ambulating normally [place]: doing well, nursing well Objective - Vital Signs Latest vital signs: Vital Signs Temp Pulse Resp BP BP Pulse Ox 07/06/19 07:37 98.4 F 85 20 99/70 97 07/05/19 23:50 98.7 F 74 19 104/78 07/05/19 20:51 100.1 F H 85 16 120/71 120/71 99 07/05/19 19:32 18 07/05/19 19:23 73 124/71 07/05/19 19:05 97.8 F 07/05/19 18:53 74 132/80 07/05/19 18:24 79 126/69 07/05/19 17:55 113 H 174/84 07/05/19 17:54 214 H 132/79 07/05/19 17:24 85 135/77 07/05/19 15:54 85 128/87 07/05/19 15:23 82 123/78 07/05/19 15:14 98.0 F Intake and Output 07/05/19 07/06/19 07/06/19 23:59 07:59 15:59 Intake Total 300 360 Output Total 1000 Balance -700 360 Intake: Oral 360 Intake, Free Water 300 Output: Urine 1000 Void 1000 Other: Total, Intake Amount 360 Total, Output Amount 800 # Voids Void 1 1 Estimated Blood Loss 300 - Exam Breasts: Present: normal, Cardiovascular: Present: Regular rate, Normal S1, Normal S2, No murmurs Lungs: Present: Clear to auscultation, Normal air movement Abdomen: Present: normal appearance, soft, normal bowel sounds. Absent: distention Vulva: both: laceration/episiotomy (1st degree; well approximated) Uterus: Present: firm, fundal height below umbilicus (-1) Extremities: Present: normal - Labs Labs: Abnormal lab results 07/05/19 07/05/19 07/05/19 Range/Units 10:30 15:44 18:07 MCHC 35 H (30-34) % Seg Neutrophils % 76.3 H (40.0-70.0) % POC ABG pH 7.269 L (7.35-7.45)
--- NOTE | 2019-07-06 12:30 | Discharge Summary ---
Providers - Providers Date of Admission: 07/05/19 07:55 Date of discharge: 07/06/19 Attending physician: SATNAM UTRNER MD Primary care physician: SATNAM TURNER MD Hospitalization Reason for admission: active labor, IUP at term Delivery: Procedure details: See delivery note Episiotomy: none Laceration: 1st degree (well approximated) Other procedures: none complications: none Discharge diagnosis: IUP at term delivered Eddy baby: male Condition at discharge: Good Disposition: DC-01 TO HOME OR SELFCARE Plan - Provider Discharge Summary Activity: routine, no sex for 6 weeks, no heavy lifting 4 weeks, no strenuous exercise Diet: routine Instructions: routine Additional instructions: [] Smoking cessation referral if applicable(refer to patient education folder for contact #) [] Refer to [facility]'s [facility] Booklet Call your doctor immediately for: * Fever > 100.5 * Heavy vaginal bleeding ( >1 pad per hour) * Severe persistent headache * Shortness of breath * Reddened, hot, painful area to leg or breast * Drainage or odor from incision. * Keep incision clean and dry at all times and follow doctor's instructions regarding bathing/showering - Follow up plan Follow up: SATNAM TURNER MD [Primary Care Provider] - 6 Weeks
[2019-07-07] MEDS: IBUPROFEN PO SCH ×3 (01:07→10:16)
[2019-07-07] MEDS: NORCO 5/325 PO PRN (05:36)
[2019-07-07] MEDS: TUCKS PAD TP PRN (06:14)
[2019-07-07 09:35] VITALS: BP 96/62
[2019-07-07] MEDS: PRENATAL VITAMIN PO SCH (10:16)
== END 2019-07-07 11:55 | disposition home or self-care (01) | DRG 807 ==
LOC: LD 07:54 → TRG 07:54 → LD 07:55 → TRG 07:55 → OB 20:44
PROVIDERS: ADMIT Obstetrics & Gynecology; ATTEND Obstetrics & Gynecology
PROC: 10E0XZZ Delivery of Products of Conception, External Approach (ICD-10-PCS; principal; 2019-07-05)
PROC: 0HQ9XZZ Repair Perineum Skin, External Approach (ICD-10-PCS; 2019-07-05)
PROC: 4A033R1 Measurement of Arterial Saturation, Peripheral, Percutaneous Approach (ICD-10-PCS; 2019-07-05)
DX: O69.1XX0 Labor and delivery complicated by cord around neck, with compression, not applicable or unspecified (principal); Z37.0 Single live birth; O70.0 First degree perineal laceration during delivery; O71.82 Other specified trauma to perineum and vulva; Z3A.40 40 weeks gestation of pregnancy
CPT/HCPCS: 36415; 82803; 85014; 85018; 85025; 85027; 86592; 86850; 86900; 86901; G0378; J2590; J7120